=== PATIENT | male | born 1995 | race Caucasian/White ===

== ENCOUNTER 2019-01-26 23:42 | Emergency (ER) | payer OTHER ==
[~2019-01-26] VITALS: Ht 195.6 cm; Wt 95.3 kg
[~2019-01-26 23:42] MED LIST: AZITHROMYCIN 2250 MG PO; BACTRIM DS TAB1 EACH PO; BACTROBAN15 GM TP; IBUPROFEN 800800 M1 PO; KEFLEX500 MG PO; MINOCIN100 MG PO; NOHOMEMEDICATIONS; PROAIR HFA8.5 GM IH; VICODIN 5-5001 EACH PO
[2019-01-27 00:39] LABS: ABSOLUTE BASOPHILS 0.1 thou/uL (0.0-0.2); ABSOLUTE EOSINOPHILS 0.2 thou/uL (0.0-0.7); ABSOLUTE LYMPHOCYTES 2.6 thou/uL (0.8-5.3); ABSOLUTE MONOCYTES 0.8 thou/uL (0.0-1.2); ABSOLUTE NEUTROPHILS 7.7 thou/uL (1.6-8.1); BASOPHILS 0.7 %; EOSINOPHILS 2.2 %; HEMATOCRIT 41.9 % (42.0-52.0); HEMOGLOBIN 13.8 gm/dL (14.0-18.0); LYMPHOCYTES 22.6 %; MCH 23.7 pg (26.0-34.0); MCV 71.8 fL (80.0-100.0); MPV 9.7 fl. (7.2-11.1); NUCLEATED RBCS 0 /100WBC; PLATELET COUNT* 198 thou/uL (150-400); POLYS 67.5 %; RBC 5.83 mil/uL (4.50-6.00); RDW-CV 13.8 % (10.5-14.5); WBC 11.4 thou/uL (4.0-11.0)
[2019-01-27 00:56] LABS: CALCIUM 9.5 mg/dL (8.5-10.1); POTASSIUM 4.3 mmol/L (3.5-5.1)
[2019-01-27 01:36] LABS: ANISOCYTOSIS 1+; HYPOCHROMASIA 1+; MICROCYTES 2+; POIKILOCYTOSIS 1+
[2019-01-27] MEDS ORDERED: NORCO 7.5-3251 EACH PO (01:41)
[2019-01-27 03:00] VITALS: BP 108/48
== END 2019-01-27 03:00 | disposition home or self-care (01) ==
LOC: M.ERS 23:42
PROVIDERS: Emergency Medicine
DX: S91.202A Unspecified open wound of left great toe with damage to nail, initial encounter (principal); L03.032 Cellulitis of left toe; F90.9 Attention-deficit hyperactivity disorder, unspecified type; J45.909 Unspecified asthma, uncomplicated; Z88.1 Allergy status to other antibiotic agents; X58.XXXA Exposure to other specified factors, initial encounter; Y93.89 Activity, other specified; Y92.89 Other specified places as the place of occurrence of the external cause; Y99.8 Other external cause status